=== PATIENT | male | born 1930 | race Caucasian/White ===

== ENCOUNTER 2020-04-10 06:21 | Day surgery (SDC) | payer MEDICARE ==
[~2020-04-10 06:21] MED LIST: ANTIOXIDANT FORMULA PO; ASPIRIN LOW DOS81 M1 PO; DOCUSATE CAL240 MG PO; DONEPEZIL5 MG PO; ELIQUIS2.5 MG PO; FOLIC ACID1 MG PO; HUMALOG100 UNIT/M SC; LANTUS100 UNIT/M SC; LIPITOR20 MG PO; NAMENDA10 MG PO; NORVASC2.5 M1 PO; SERTRALINE50 MG PO; SYNTHROID75 MCG PO; VITAMIN B-12500 MCG PO; [UNRECOGNIZED DRUG - CODE] PO
[2020-04-10 13:17] VITALS: BP 146/77
== END 2020-04-10 12:10 | disposition home or self-care (01) ==
LOC: ENDO 06:21 → ORM 08:00 → ENDO 12:10
PROVIDERS: ATTEND Urology
PROC: 0TB78ZX Excision of Left Ureter, Via Natural or Artificial Opening Endoscopic, Diagnostic (ICD-10-PCS; principal; 2020-04-10)
PROC: BT1FZZZ Fluoroscopy of Left Kidney, Ureter and Bladder (ICD-10-PCS; 2020-04-10)
PROC: 0T778DZ Dilation of Left Ureter with Intraluminal Device, Via Natural or Artificial Opening Endoscopic (ICD-10-PCS; 2020-04-10)
PROC: 0TBB8ZX Excision of Bladder, Via Natural or Artificial Opening Endoscopic, Diagnostic (ICD-10-PCS; 2020-04-10)
DX: C66.2 Malignant neoplasm of left ureter (principal); D49.4 Neoplasm of unspecified behavior of bladder; N32.89 Other specified disorders of bladder; N32.3 Diverticulum of bladder; N42.1 Congestion and hemorrhage of prostate; I10 Essential (primary) hypertension; E11.9 Type 2 diabetes mellitus without complications; I11.0 Hypertensive heart disease with heart failure; I50.9 Heart failure, unspecified; Z85.53 Personal history of malignant neoplasm of renal pelvis; Z11.59 Encounter for screening for other viral diseases
CPT/HCPCS: Q9967